=== PATIENT | female | born 1970 | race Caucasian/White ===

== ENCOUNTER 2022-08-05 14:45 | Emergency (ER) | payer BC ==
[2022-08-05] MEDS ORDERED: Acetaminophen/HYDROcodone 325-5 MG Tab PO ONE (16:07)
[2022-08-05] MEDS ORDERED: Bacitracin Oint 1 GM U/D Packet TOP ONE (16:08)
== END 2022-08-05 17:32 | disposition home or self-care (01) ==
LOC: JP.ED 14:45
DX: S60.221A Contusion of right hand, initial encounter (principal); I10 Essential (primary) hypertension; Z88.2 Allergy status to sulfonamides; Z79.899 Other long term (current) drug therapy; W23.0XXA Caught, crushed, jammed, or pinched between moving objects, initial encounter
CPT/HCPCS: 73130; 99283; A9270